=== PATIENT | male | born 1985 | race Caucasian/White ===

== ENCOUNTER 2017-01-24 19:57 | Emergency (ER) | payer OTHER, MEDICAID ==
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
[~2017-01-24 19:57] MED LIST: ANSAID100 MG PO; AUGMENTIN PO; FLEXERIL PO; FLEXERIL10 MG PO; KEFLEX500 MG PO; KETOPROFEN PO; MEDROL PO; MOBIC PO; SKELAXIN PO; ULTRAM PO; VOLTAREN50 MG PO; VOLTAREN75 MG PO
== END 2017-01-24 22:14 | disposition home or self-care (01) ==
LOC: SED 19:57
DX: S92.344A Nondisplaced fracture of fourth metatarsal bone, right foot, initial encounter for closed fracture (principal); Z88.1 Allergy status to other antibiotic agents; V49.40XA Driver injured in collision with unspecified motor vehicles in traffic accident, initial encounter
CPT/HCPCS: 29540; 73630; 99283